=== PATIENT | female | born 1970 | race Caucasian/White ===

== ENCOUNTER 2020-11-30 08:37 | Outpatient (CLI) | payer OTHER | END 2020-11-30 08:38 | disposition home or self-care (01) | LOC: CSHMAMMO 08:37 | PROVIDERS: ATTEND Obstetrics & Gynecology | DX: Z12.31 Encounter for screening mammogram for malignant neoplasm of breast (principal) | CPT/HCPCS: 77063; 77067 ==

== ENCOUNTER 2021-12-01 08:00 | Outpatient (CLI) | payer BC | END 2021-12-01 08:01 | disposition home or self-care (01) | LOC: CSHMAMMO 08:00 | PROVIDERS: ATTEND Obstetrics & Gynecology | DX: Z12.31 Encounter for screening mammogram for malignant neoplasm of breast (principal) | CPT/HCPCS: 77063; 77067 ==

== ENCOUNTER 2024-06-16 08:12 | Outpatient (CLI) | payer BC | END 2024-06-16 08:13 | disposition home or self-care (01) | LOC: CSHMAMMO 08:12 | PROVIDERS: ATTEND Obstetrics & Gynecology | DX: Z12.31 Encounter for screening mammogram for malignant neoplasm of breast (principal); N64.89 Other specified disorders of breast | CPT/HCPCS: 77063; 77067 ==

== ENCOUNTER 2024-07-04 13:45 | Outpatient (CLI) | payer BC | END 2024-07-04 13:46 | disposition home or self-care (01) | LOC: CSHMAMMO 13:45 | PROVIDERS: ATTEND Obstetrics & Gynecology | DX: N64.89 Other specified disorders of breast (principal) | CPT/HCPCS: G0279 ==

== ENCOUNTER 2025-07-07 08:15 | Outpatient (CLI) | payer BC | END 2025-07-07 08:16 | disposition home or self-care (01) | LOC: CSHMAMMO 08:15 | PROVIDERS: ATTEND Obstetrics & Gynecology | DX: Z12.31 Encounter for screening mammogram for malignant neoplasm of breast (principal) | CPT/HCPCS: 77063; 77067 ==